=== PATIENT | female | born 1930 | race Caucasian/White ===

== ENCOUNTER 2018-03-15 16:36 | Inpatient (IN) | payer OTHER ==
[~2018-03-15] VITALS: Ht 157.5 cm; Wt 49.9 kg
[~2018-03-15 16:36] MED LIST: AVAPRO150 MG; COREG CR10 MG; COUMADIN2 MG; CRESTOR20 MG; LEVOXYL75 MCG; LISINOPRIL20 MG; NORVASC2.5 MG; PLETAL100 MG; TRAMADOL HCL50 MG
--- NOTE | 2018-03-15 17:16 | NUR ---
DG REFIERE PAICNETE CON REFERIDO MEDICO , PRESENTANDO HEMOGLOBINA BAJA. EDEMA EN AMBOS PIES, SE ROXANE BP MANUL A160/60 , SE PRESNETA PACIENTE AL DR. MAKI REFIERE ACOMODARLA EN ADELINA.
--- NOTE | 2018-03-15 18:05 | NUR ---
SE ORIENTA AL PACIENTE Y AL FAMILIAR SOBRE EL TX. SE EXTRAEN MUESTRAS DE SERA BAJO MEDIDAS ASEPTICAS SE ROTULAN Y ENVIAN AL LABORATORIO. SE CANALIA BAJO MEDIDAS ASEPTICAS Y SE COLOCA H/L. SE REALIZA CAMBIO DE PANAL. SE INSERTA ENRIQUEZ CATETER BAJO MEDIDAS ESTERILES DRENANDO UA ABUNDANTE AMARILLO INTENSO. SE COLECTA MUESTRA PARA UA ROTULADA Y ENVIADA AL LABORATORIO.
--- NOTE | 2018-03-16 00:03 | NUR ---
SE RECIBE PACIENTE DEL TURNO ANTERIOR ALERTA Y ORIENTADA EN PERSONA EN ADELINA CON CABEZERA A 45 GRADOS Y BARANDAS ELEVADAS, AREA DE VENOPUNCION PATENTE Y MARÍA ERITEMA O EDEMA. ENRIQUEZ A GRAVEDAD DRENANDO ORINA DE COLOR AMARILLA DAY. AL MOMENTO LA PACIENTE NIEGA DOLOR, DISPNEA U OTRO SINTOMA.
--- NOTE | 2018-03-16 07:33 | NUR ---
SE RECIBE PTE ALERTA, EN COMPANIA DE FAMILIAR. SE OBSERVA CON BUEN PATRON RESPIRATORIO Y PIEL TIBIA ALTACTO. EN ADELINA NIVEL MAS BAJO, BONILLA DE IDENTIFICACION Y BARANDAS ELEVADAS POR PRECAUCION. H/L EN BRAZO LT PATENTE Y MARÍA DE EDEMA O ERITEMA. ENRIQUEZ PATENTE, DRENANDO ORINA COLOR AMARILLO LEIGHA, APROXIMADAMENTE 10 ML. PTE CON CANULA NASAL 2L/MIN. PTE CON 3 U DE PRBC EN HOLD. PENDIENTE A CONSULTA CON DR DENISE GRUBER. SE MANTIENE BAJO OBSERVACION.
== END 2018-03-21 11:10 | disposition home or self-care (01) | DRG 698 ==
LOC: ER 16:36 → SEC-K 03-16 09:09 → ICU-2 03-16 09:09 → ICU 03-18 22:25 → MEDI 03-20 14:42
PROVIDERS: ADMIT Internal Medicine
PROC: 0T9B70Z Drainage of Bladder with Drainage Device, Via Natural or Artificial Opening (ICD-10-PCS; 2018-03-16)
PROC: BW40ZZZ Ultrasonography of Abdomen (ICD-10-PCS; 2018-03-17)
PROC: 30233N1 Transfusion of Nonautologous Red Blood Cells into Peripheral Vein, Percutaneous Approach (ICD-10-PCS; principal; 2018-03-18)
PROC: 4A12X4Z Monitoring of Cardiac Electrical Activity, External Approach (ICD-10-PCS; 2018-03-20)
DX: E11.22 Type 2 diabetes mellitus with diabetic chronic kidney disease (principal); I21.4 Non-ST elevation (NSTEMI) myocardial infarction; I12.0 Hypertensive chronic kidney disease with stage 5 chronic kidney disease or end stage renal disease; I30.8 Other forms of acute pericarditis; N39.0 Urinary tract infection, site not specified; N18.5 Chronic kidney disease, stage 5; D63.1 Anemia in chronic kidney disease; N17.8 Other acute kidney failure; Z79.4 Long term (current) use of insulin; E03.8 Other specified hypothyroidism; E87.5 Hyperkalemia; G30.0 Alzheimer's disease with early onset; F02.80 Dementia in other diseases classified elsewhere, unspecified severity, without behavioral disturbance, psychotic disturbance, mood disturbance, and anxiety; I25.118 Atherosclerotic heart disease of native coronary artery with other forms of angina pectoris; I27.21 Secondary pulmonary arterial hypertension; I48.0 Paroxysmal atrial fibrillation; Z79.01 Long term (current) use of anticoagulants

== ENCOUNTER 2018-03-27 12:49 | Inpatient (IN) | payer OTHER ==
[~2018-03-27] VITALS: Ht 152.4 cm; Wt 49.0 kg
--- NOTE | 2018-03-27 13:35 | NUR ---
SE RECIBE PTE ALERTA Y ORIENTADA EN 3 ESFERAS EN [place] ACOMPANADA DE FAMILIAR. FAMILIAR REFIERE VARIOS ALZO PTE CON TOS CON ESPUTO. SAT 88% EL CUAL SE NOTIFICO AL DR GARCIA Y REFIERE UBICAR PTE EN UNIDAD DE CHEST PAIN.
--- NOTE | 2018-03-27 14:11 | NUR ---
EVALLUADA POR EL SE ORIENTA SOBRE TRATAMIENTO MEDICO Y LA UNIDAD SE LE EXTRAEN MUESTRAS DE SERA Y SE ENVIAN AL LABORATORIO. CONECTADO A MONITOR CARDIACO Y OXIMETRIA.SE MANTIENE EN OBSERVACION.
--- NOTE | 2018-03-27 15:21 | NUR ---
SE RECIBE PTE FEMENINA ALERTA Y ORIENTADA X3,ACOMPANADA DE FAMILIAR,EN ADELINA #18 CPU ER,CONECTADA A MONITOR CARDIACO CONSTATE CON H/L PATENTES,SE ADMINISTRAN MEDICAMENTOS LOS CUALES TOLERA Y SE MANTIENEN TOMANDO TERAPIA RESPIRATORIA,CON CABECERA ELEVADA,PTE REFIERE AL TOSER NO PUEDE EXPECTORAR,SE ORIENTA A FAMILIAR SOBRE CONSULTA CON MEDICINA INTERNA,SE MANTIENE A PTE EN OBSERVACION POR CAMBIOS.
== END 2018-04-20 22:24 | disposition expired | DRG 190 ==
LOC: ER 12:49 → ICU-2 18:26 → ICU 04-01 21:28 → MEDJ 04-08 18:42
PROVIDERS: ADMIT Internal Medicine
PROC: 3E0F7GC Introduction of Other Therapeutic Substance into Respiratory Tract, Via Natural or Artificial Opening (ICD-10-PCS; 2018-03-27)
PROC: 0T9B70Z Drainage of Bladder with Drainage Device, Via Natural or Artificial Opening (ICD-10-PCS; 2018-03-27)
PROC: 02HV33Z Insertion of Infusion Device into Superior Vena Cava, Percutaneous Approach (ICD-10-PCS; 2018-03-28)
PROC: B246ZZZ Ultrasonography of Right and Left Heart (ICD-10-PCS; 2018-03-29)
PROC: BW24ZZZ Computerized Tomography (CT Scan) of Chest and Abdomen (ICD-10-PCS; 2018-04-01)
PROC: 4A12X4Z Monitoring of Cardiac Electrical Activity, External Approach (ICD-10-PCS; 2018-04-01)
PROC: 0W9930Z Drainage of Right Pleural Cavity with Drainage Device, Percutaneous Approach (ICD-10-PCS; principal; 2018-04-02)
PROC: 0DH67UZ Insertion of Feeding Device into Stomach, Via Natural or Artificial Opening (ICD-10-PCS; 2018-04-02)
PROC: 3E0336Z Introduction of Nutritional Substance into Peripheral Vein, Percutaneous Approach (ICD-10-PCS; 2018-04-02)
PROC: 0W9B30Z Drainage of Left Pleural Cavity with Drainage Device, Percutaneous Approach (ICD-10-PCS; 2018-04-04)
PROC: 4A033R1 Measurement of Arterial Saturation, Peripheral, Percutaneous Approach (ICD-10-PCS; 2018-04-13)
DX: J44.1 Chronic obstructive pulmonary disease with (acute) exacerbation (principal); J96.01 Acute respiratory failure with hypoxia; J16.8 Pneumonia due to other specified infectious organisms; I21.4 Non-ST elevation (NSTEMI) myocardial infarction; I50.23 Acute on chronic systolic (congestive) heart failure; B37.1 Pulmonary candidiasis; I12.0 Hypertensive chronic kidney disease with stage 5 chronic kidney disease or end stage renal disease; N18.5 Chronic kidney disease, stage 5; N17.8 Other acute kidney failure; J90 Pleural effusion, not elsewhere classified; N39.0 Urinary tract infection, site not specified; K92.1 Melena; D62 Acute posthemorrhagic anemia; E87.3 Alkalosis; I48.2 Chronic atrial fibrillation; Z79.01 Long term (current) use of anticoagulants; E11.22 Type 2 diabetes mellitus with diabetic chronic kidney disease; E11.65 Type 2 diabetes mellitus with hyperglycemia; Z79.4 Long term (current) use of insulin; I25.10 Atherosclerotic heart disease of native coronary artery without angina pectoris; E03.8 Other specified hypothyroidism; E87.5 Hyperkalemia; E86.0 Dehydration; B96.1 Klebsiella pneumoniae [K. pneumoniae] as the cause of diseases classified elsewhere; J45.40 Moderate persistent asthma, uncomplicated; Z99.81 Dependence on supplemental oxygen; E78.2 Mixed hyperlipidemia; Z66 Do not resuscitate; R41.82 Altered mental status, unspecified; F06.8 Other specified mental disorders due to known physiological condition